=== PATIENT | female | born 1985 | race African-American/Black ===

== ENCOUNTER 2023-10-15 11:26 | Emergency (ER) | payer MEDICAID, SELFPAY ==
[2023-10-15 11:26] VITALS: BP 140/85; PULSE 103; RESP 18; TEMP 36.6; O2SAT 98
== END 2023-10-15 11:54 ==
LOC: CHSED 12:50
PROVIDERS: Emergency Provider Emergency Medicine
DX: Z02.83 Encounter for blood-alcohol and blood-drug test (principal)
CPT/HCPCS: 99199